=== PATIENT | male | born 1965 | race Caucasian/White ===

== ENCOUNTER 2018-09-29 12:31 | Emergency (ER) | payer OTHER ==
[~2018-09-29] VITALS: Ht 180.3 cm; Wt 95.3 kg
--- NOTE | 2018-09-29 12:40 | NUR ---
PT BIB SELF C/O FLU LIKE SYMPTOMS. PT IS AAOX4, NOT IN RESPIRATORY DISTRESS, V/S STABLE, KEPT RESTED AND COMFORTABLE.
[2018-09-29 13:24] VITALS: BP 128/81
--- NOTE | 2018-09-29 13:35 | NUR ---
Patient discharged to home in stable condition. Written and verbal after care instructions given. Patient verbalizes understanding of instruction.
== END 2018-09-29 13:39 | disposition home or self-care (01) ==
LOC: ER 12:34
DX: J06.9 Acute upper respiratory infection, unspecified (principal); E11.9 Type 2 diabetes mellitus without complications; F17.200 Nicotine dependence, unspecified, uncomplicated; Z60.2 Problems related to living alone; Z98.890 Other specified postprocedural states
CPT/HCPCS: 71045; 82962; 99283; A4606; Z7610